=== PATIENT | female | born 1945 ===

== ENCOUNTER 2018-12-15 09:31 | Outpatient (CLI) | payer OTHER | END 2018-12-15 09:33 | disposition home or self-care (01) | LOC: SONOGRAMA 09:31 | DX: E04.1 Nontoxic single thyroid nodule (principal) ==

== ENCOUNTER 2021-11-27 10:55 | Outpatient (CLI) | payer OTHER | END 2021-11-27 11:05 | disposition home or self-care (01) | LOC: SONOGRAMA 10:55 | PROVIDERS: ATTEND Pathology Anatomic Pathology & Clinical Pathology | DX: E04.2 Nontoxic multinodular goiter (principal) ==

== ENCOUNTER 2023-12-06 12:37 | Outpatient (CLI) | payer OTHER | END 2023-12-06 12:38 | disposition home or self-care (01) | LOC: SONOGRAMA 12:37 | PROVIDERS: ATTEND Pathology Anatomic Pathology & Clinical Pathology | DX: D34 Benign neoplasm of thyroid gland (principal); E07.89 Other specified disorders of thyroid; E04.2 Nontoxic multinodular goiter ==

== ENCOUNTER 2025-05-17 13:52 | Outpatient (CLI) | payer OTHER | END 2025-05-17 13:55 | disposition home or self-care (01) | LOC: SONOGRAMA 13:52 | PROVIDERS: ATTEND Pathology Anatomic Pathology | DX: D34 Benign neoplasm of thyroid gland (principal); E07.89 Other specified disorders of thyroid; E04.2 Nontoxic multinodular goiter ==